=== PATIENT | female | born 2000 | race Caucasian/White ===

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

== ENCOUNTER → 2023-09-25 | Outpatient (CLI) | payer OTHER, SELFPAY ==
[2023-09-28 06:08] LABS: Chlamydia By Nucleic Acid AMP Negative (Negative); Gonococcus By Nucleic Acid AMP Negative (Negative)
[2023-10-01 16:28] LABS: HPV Reflexed? NOT INDICATED
== END | disposition home or self-care (01) ==
PROVIDERS: Referring Provider Advanced Practice Midwife; Visit Provider Advanced Practice Midwife
DX: Z34.00 Encounter for supervision of normal first pregnancy, unspecified trimester (principal)
CPT/HCPCS: 87086; 87088; 87491; 87591; 88175; G0145

== ENCOUNTER → 2023-10-28 | Outpatient (CLI) | payer OTHER, SELFPAY ==
[2023-10-28 12:31] LABS: Absolute Lymphocyte Count 2.19 X10^3/uL (0.83-4.51); Absolute Neutrophil Count 6.4 X10^3/uL (2.0-7.7); Basophil# 0.01 X10^3/uL; Basophil% 0.1 % (0-1); Eosinophil# 0.19 X10^3/uL; Hematocrit 38.2 % (37-47); Lymphocyte # 2.19 X10^3/ul (0.83-4.51); Lymphocyte % 23.1 % (19-41); Mean Corpuscular Hgb 29.7 pg (27.0-32.0); Mean Corpuscular Volume 87.2 fL (81-99); Mean Platelet Vol. 10.4 fl (6.2-12.0); Monocyte# 0.62 X10^3/uL; Monocyte% 6.5 % (0-10); NRBC Flagged by Analyzer 0 % (0-5); Neutrophil # 6.44 X10^3/uL (2.7-7.7); Platelet Count 197 K/mm3 (150-450); RBC Distribution Width CV 12.4 % (11.6-14.6); RBC Distribution Width SD 39.6 fl (35.1-43.9); Red Blood Count 4.38 M/mm3 (4.2-5.4); White Blood Count 9.5 K/mm3 (4.4-11.0)
[2023-10-28 13:40] LABS: HIV - WCH Non-Reactive (Nonreactive); Hepatitis B Surface Antigen Non-Reactive (Nonreactive); Hepatitis C Antibody Non-Reactive (Nonreactive); Rubella IgG Reactive (Nonreactive); Syphilis Antibodies Non-reactive
== END | disposition home or self-care (01) ==
PROVIDERS: Advanced Practice Midwife; Referring Provider Obstetrics & Gynecology; Visit Provider Obstetrics & Gynecology
DX: Z34.82 Encounter for supervision of other normal pregnancy, second trimester (principal)
CPT/HCPCS: 36415; 85025; 86703; 86762; 86780; 86803; 86850; 86900; 86901; 87340

== ENCOUNTER → 2024-01-24 | Outpatient (CLI) | payer OTHER, SELFPAY ==
[2024-01-24 14:32] LABS: Absolute Lymphocyte Count 2.15 X10^3/uL (0.83-4.51); Absolute Neutrophil Count 8.1 X10^3/uL (2.0-7.7); Basophil# 0.03 X10^3/uL; Basophil% 0.3 % (0-1); Eosinophils% 0.9 % (0-5); Hematocrit 32.3 % (37-47); Hemoglobin 10.7 g/dL (12.0-15.0); Lymphocyte # 2.15 X10^3/ul (0.83-4.51); Lymphocyte % 19.1 % (19-41); Mean Corp Hgb Conc 33.1 g/dL (32-36); Mean Corpuscular Hgb 29.5 pg (27.0-32.0); Mean Platelet Vol. 10.2 fl (6.2-12.0); Monocyte# 0.78 X10^3/uL; Monocyte% 6.9 % (0-10); NRBC Flagged by Analyzer 0 % (0-5); Neutrophil # 8.09 X10^3/uL (2.7-7.7); Platelet Count 245 K/mm3 (150-450); RBC Distribution Width CV 11.9 % (11.6-14.6); RBC Distribution Width SD 38.2 fl (35.1-43.9); Red Blood Count 3.63 M/mm3 (4.2-5.4); White Blood Count 11.2 K/mm3 (4.4-11.0)
[2024-01-24 14:47] LABS: Glucose Challenge Gest 1H 50g 107 mg/dL (70-140)
[2024-01-24 15:18] LABS: HIV - WCH Non-Reactive (Nonreactive); Syphilis Antibodies Non-reactive
== END | disposition home or self-care (01) ==
LOC: LAB 13:38
PROVIDERS: PCP Internal Medicine; Referring Provider Nurse Practitioner Women's Health; Visit Provider Nurse Practitioner Women's Health
DX: Z34.02 Encounter for supervision of normal first pregnancy, second trimester (principal); Z3A.00 Weeks of gestation of pregnancy not specified
CPT/HCPCS: 36415; 82950; 85025; 86703; 86780

== ENCOUNTER → 2024-02-24 | Outpatient (CLI) | payer OTHER, SELFPAY ==
[2024-02-24 16:03] LABS: Absolute Lymphocyte Count 2.49 X10^3/uL (0.83-4.51); Basophil# 0.02 X10^3/uL; Basophil% 0.1 % (0-1); Eosinophil# 0.09 X10^3/uL; Eosinophils% 0.7 % (0-5); Hematocrit 29.5 % (37-47); Hemoglobin 9.6 g/dL (12.0-15.0); Lymphocyte # 2.49 X10^3/ul (0.83-4.51); Lymphocyte % 18.5 % (19-41); Mean Corp Hgb Conc 32.5 g/dL (32-36); Mean Corpuscular Hgb 28.1 pg (27.0-32.0); Mean Corpuscular Volume 86.3 fL (81-99); Mean Platelet Vol. 10.1 fl (6.2-12.0); Monocyte# 0.75 X10^3/uL; Monocyte% 5.6 % (0-10); NRBC Flagged by Analyzer 0 % (0-5); Neutrophil % 74.3 % (47-70); Platelet Count 219 K/mm3 (150-450); RBC Distribution Width CV 12.2 % (11.6-14.6); RBC Distribution Width SD 38.2 fl (35.1-43.9); Red Blood Count 3.42 M/mm3 (4.2-5.4); White Blood Count 13.5 K/mm3 (4.4-11.0)
== END | disposition home or self-care (01) ==
LOC: LAB 15:37
PROVIDERS: PCP Internal Medicine; Referring Provider Advanced Practice Midwife; Visit Provider Advanced Practice Midwife
DX: O99.019 Anemia complicating pregnancy, unspecified trimester (principal); Z3A.00 Weeks of gestation of pregnancy not specified
CPT/HCPCS: 36415; 85025

== ENCOUNTER → 2024-03-27 | Outpatient (CLI) | payer OTHER, SELFPAY ==
[2024-03-27 17:15] LABS: Hematocrit 29.8 % (37-47); Hemoglobin 9.4 g/dL (12.0-15.0); Mean Corp Hgb Conc 31.5 g/dL (32-36); Mean Corpuscular Hgb 25.9 pg (27.0-32.0); Mean Corpuscular Volume 82.1 fL (81-99); Mean Platelet Vol. 10.8 fl (6.2-12.0); Platelet Count 224 K/mm3 (150-450); RBC Distribution Width SD 39.1 fl (35.1-43.9); Red Blood Count 3.63 M/mm3 (4.2-5.4); White Blood Count 15.9 K/mm3 (4.4-11.0)
[2024-03-27 17:28] LABS: Iron 36 ug/dL (50-170); Iron Binding Capacity,Total 553 ug/dL (250-450); PERCENT IRON SATURATION 6.5 % (15.0-55.0)
== END | disposition home or self-care (01) ==
LOC: BWCLAB 14:27
PROVIDERS: Obstetrics & Gynecology; PCP Internal Medicine; Referring Provider Registered Nurse; Visit Provider Registered Nurse
DX: O99.019 Anemia complicating pregnancy, unspecified trimester (principal); Z3A.00 Weeks of gestation of pregnancy not specified
CPT/HCPCS: 36415; 83540; 83550; 85027

== ENCOUNTER → 2024-04-06 | Outpatient (CLI) | payer SELFPAY | END | disposition home or self-care (01) | LOC: LABSPEC 15:23 | PROVIDERS: PCP Internal Medicine; Referring Provider Obstetrics & Gynecology; Visit Provider Obstetrics & Gynecology | DX: Z34.02 Encounter for supervision of normal first pregnancy, second trimester (principal); Z3A.00 Weeks of gestation of pregnancy not specified | CPT/HCPCS: 87081 ==

== ENCOUNTER 2024-04-10 08:21 | Outpatient (CLI) | payer OTHER, SELFPAY ==
[2024-04-10 08:36] VITALS: BP 111/78; PULSE 94; RESP 16; TEMP 36.4; O2SAT 98; BMI 27.4
[2024-04-10] MEDS: Iron Sucrose Complex 300 MG in 0.9% Normal Saline (250mL Bag) 250 ML 177 MG IV (08:45)
[2024-04-10] MEDS: 0.9% NaCl Peripheral Flush Adult/Peds IV (08:45)
[2024-04-10 11:05] VITALS: BP 115/73; PULSE 83; RESP 16; TEMP 36.4; O2SAT 97
== END 2024-04-10 23:59 | disposition home or self-care (01) ==
PROVIDERS: PCP Internal Medicine; Referring Provider Obstetrics & Gynecology; Visit Provider Obstetrics & Gynecology
DX: D64.9 Anemia, unspecified (principal)
CPT/HCPCS: 96365; 96366; J1756; A4216

== ENCOUNTER 2024-04-17 08:22 | Outpatient (CLI) | payer OTHER, SELFPAY ==
[2024-04-17 08:27] VITALS: BP 114/73; PULSE 89; RESP 16; TEMP 36.2; O2SAT 95
[2024-04-17] MEDS: 0.9% NaCl Peripheral Flush Adult/Peds IV (08:34)
[2024-04-17] MEDS: 0.9% Normal Saline (100mL Bag) 100 ML 15 ML IV (08:38)
[2024-04-17] MEDS: Iron Sucrose Complex 300 MG in 0.9% Normal Saline (250mL Bag) 250 ML 177 MG IV (08:50)
[2024-04-17 10:53] VITALS: BP 117/72; PULSE 86; RESP 16; TEMP 36.5; O2SAT 96
== END 2024-04-17 23:59 | disposition home or self-care (01) ==
LOC: MEDOUTP 08:22
PROVIDERS: PCP Internal Medicine; Referring Provider Obstetrics & Gynecology; Visit Provider Obstetrics & Gynecology
DX: D64.9 Anemia, unspecified (principal)
CPT/HCPCS: 96365; 96366; J1756; A4216

== ENCOUNTER 2024-04-24 08:27 | Outpatient (CLI) | payer OTHER, SELFPAY ==
[2024-04-24 08:32] VITALS: BP 121/82; PULSE 78; RESP 16; TEMP 36
[2024-04-24] MEDS: 0.9% NaCl Peripheral Flush Adult/Peds IV (08:33)
[2024-04-24] MEDS: 0.9% Normal Saline (100mL Bag) 100 ML 15 ML IV (08:33)
[2024-04-24] MEDS: Iron Sucrose Complex 300 MG in 0.9% Normal Saline (250mL Bag) 250 ML 177 MG IV (08:40)
[2024-04-24 10:32] VITALS: BP 119/81; PULSE 89; RESP 16; TEMP 36.6; O2SAT 96
== END 2024-04-24 23:59 | disposition home or self-care (01) ==
LOC: MEDOUTP 08:27
PROVIDERS: PCP Internal Medicine; Referring Provider Obstetrics & Gynecology; Visit Provider Obstetrics & Gynecology
DX: D64.9 Anemia, unspecified (principal)
CPT/HCPCS: 96365; 96366; J1756; A4216

== ENCOUNTER 2024-05-03 07:15 | Inpatient (IN) | payer OTHER, SELFPAY ==
[2024-05-03] VITALS (105 sets, daily range): BP systolic 103–141; BP diastolic 57–89; PULSE 70–219; RESP 14–18; TEMP 36.5–39.4; O2SAT 82–100; BMI 26.6
[2024-05-03] MEDS: Lactated Ringers 1,000 ML 50 ML IV (07:45)
--- NOTE | 2024-05-03 07:47 | HP.PCM.OB_ITS ---
HPI - General General Date of Admission: 05/03/24 Date of Service: 05/03/24 HPI Narrative RAMON BRAND, is a 23 F 40.5 weeks who presents for elective induction of labor Maternal Data Information RIC Calculator Estimated Delivery Date Method Current WG Current Estimate 04/28/24 LMP (Certain) 40w 5d Final RIC: 04/28/24 Final RIC Source: US >20 weeks Gestational age: 40.5 weeks PFSH PFSH Medical History Seasonal allergies Home Medications ?Medication ?Instructions ?Recorded ?Last Taken ?Type multivit-min no.71-iron fum 28 1 cap PO DAILY 09/06/23 Unknown History mg-folate no.1 1 mg-dha 300 mg capsule (PNV-[place]) Allergy/AdvReac Type Severity Reaction Status Date / Time No Known Allergies Allergy Verified 05/03/24 07:21 Social History adopted: No household members: significant other current occupational status: employed current occupation: instrument installer pets and animals: Yes (Avoid litter box) pets and animals: cat(s) history of recent travel: Yes ([place], [facility] & [place] in July) out of state: Yes sexually active: Yes Smoking Status: Never smoker alcohol intake: never substance use type: does not use well-balanced diet: about half the time caffeine: No eating out: 1-3 times/week during the past year weight has: remained stable what type of physical activity do you participate in: walking frequency: daily duration: 15-30 minutes/day román/presybeterian: None seatbelt use: always do you feel safe at home: Yes additional social history: BF Stephan History 1 Elective abortions Hx Para 0 Spontaneous abortions Hx # Term Pregnancies Ectopic pregnancies Hx # Pregnancies Multiple births # of living children Visit Details Expected Delivery Route/Plan Labor Preferences- CB/BF classes: labor support person: Stephan labor intervention preferences: [] pain management options preferred: plan epidural cut cord/dad catch: [] : [] PP control planned: [] discussed possible routes of delivery and associated risks: [] special requests: [] Plans Covid status: [] Flu vaccine: [] Tdap vaccine: done Rhogam: [] LARC form signed: done Problem list reviewed and updated with the most current plan of care details and appropriate orders placed. Relevant counseling for the gestational age provided. Continue routine care and follow up unless otherwise noted in visit notes/problem list details OB Flowsheet Initial Weight: 145 lb Date -?-?-?-?-?-?-?-?-?-?-?-?- EGA Weight BP Urine Prot -?-?-?-?-?-?-?-?-?-?-?-?- Glucose FHR FuHt Pres Dilation -?-?-?-?-?-?-?-?-?-?-?-?- Effaced St Visit Note 09/25/23 -?-?-?-?-?-?-?-?-?-?-?-?- 9w 1d 145 lb (+0 oz) 106/67 -?-?-?--?-?-?-?-?-?-?-?-?- 175 -?-?-?-?-?-?-?-?-?-?-?-?- KW- CRL cons wit h dates 24mm. declines NIPT at this time. 10/28/23 -?-?-?-?-?-?-?-?-?-?-?-?- 13w 6d 139 lb 6 oz (-5 lb 10 oz) 121/81 Negative -?-?-?-?-?-?-?-?-?-?-?-?- Negative 155 -?-?-?-?-?-?-?-?-?-?-?-?- JV- growth is pr ogressing well. no complaints today. wants NIPT. Anatomy scan with mfm ordered. 11/27/23 -?-?-?-?-?-?-?-?-?-?-?-?- 18w 1d 143 lb (-2 lb) 115/81 Negative -?-?-?-?-?-?-?-?-?-?-?-?- Negative 150 -?-?-?-?-?-?-?-?-?-?-?-?- SM- no vb lof an atomy US 12/25/23 -?-?-?-?-?-?-?-?-?-?-?-?- 22w 1d 146 lb 6 oz (+1 lb 6 oz) 112/70 Negative -?-?-?-?-?-?-?-?-?-?-?-?- Negative 141 -?-?-?-?-?-?-?-?-?-?-?-?- MH-No VB, LOF. Good FM. Declines concerns 01/24/24 -?-?-?-?-?-?-?-?-?-?-?-?- 26w 3d 145 lb 8 oz (+8 oz) 106/71 Negative -?-?-?-?-?-?-?-?-?-?--?-?- Negative 146 27 -?-?-?-?-?-?-?-?-?-?-?-?- LC- no vb/ctx/lo f. good fm. 28 week labs today. LC- no vb/ctx/lof. good fm. 28 week labs today. considering tdap 02/10/24 -?-?-?-?-?-?-?-?-?-?-?-?- 28w 6d 150 lb (+5 lb) 107/75 Negative -?-?-?-?-?-?-?-?-?-?-?-?- Negative 140 29 -?-?-?-?-?-?-?-?-?-?-?-?- KW- no vb/lof/ct x. good fm. Tdap today. LARC done 02/24/24 -?-?-?-?-?-?-?-?-?-?-?-?- 30w 6d 154 lb (+9 lb) 111/71 Negative -?-?-?-?-?-?-?-?-?-?-?-?- Negative 135 31 -?-?-?-?-?-?-?-?-?-?-?-?- KW- no vb/lof/ct x. good fm. no concerns today 03/09/24 -?-?-?-?-?-?-?-?-?-?-?-?- 32w 6d 154 lb 2 oz (+9 lb 2 oz) 121/75 Negative -?-?-?-?-?-?-?-?-?-?-?-?- Negative 140 33 -?-?-?-?-?-?-?-?-?-?-?-?- JV- no lof, vagi nal bleeding, or dec fm. iron studies and rpt cbc for next visit. (started iron 2 weeks ago) 03/27/24 -?-?-?-?-?-?-?-?-?-?-?-?- 35w 3d 156 lb 4 oz (+11 lb 4 oz) 113/79 Negative -?-?-?-?-?-?-?-?-?-?-?-?- Negative 140 35 -?-?-?-?-?-?-?-?-?-?-?-?- LC- no vb/ctx/lo f. good fm. no concerns. LC- no vb/ctx/lof. good fm. no concerns. repeat cbc/iron studies today 04/06/24 -?-?-?-?-?-?-?-?-?-?-?-?- 36w 6d 162 lb 2 oz (+17 lb 2 oz) 126/85 Negative -?-?-?-?-?-?-?-?-?-?-?-?- Negative 140 35 -?-?-?-?-?-?-?-?-?-?-?-?- SM- no vb lof go od fm n oreuglar ctx discussed IV iron infusions need schedule EMILY 04/14/24 -?-?-?-?-?-?-?-?-?-?-?-?- 38w 0d 161 lb 4 oz (+16 lb 4 oz) 118/85 Trace -?-?-?--?-?-?-?-?-?-?-?-?- Negative 165 37 Cephalic 0 .5 -?-?-?-?-?-?-?-?-?-?-?-?- -2 JV- cerv ix very posterior and difficult to reach. station is -2 however. 04/20/24 -?-?-?-?-?-?-?-?-?-?-?-?- 38w 6d 159 lb (+14 lb) 117/81 Trace -?-?-?-?-?-?-?-?-?-?-?-?- Negative 130 38 -?-?-?-?-?--?-?-?-?-?-?-?- KW- no vb/lof/ct x. good fm. 04/27/24 -?-?-?-?-?-?-?-?-?-?-?-?- 39w 6d 160 lb 8 oz (+15 lb 8 oz) 114/83 Negative -?-?-?-?-?-?-?-?-?-?-?-?- Negative 135 39 Cephalic 1 -?-?-?-?-?-?-?-?-?-?-?-?- 70 -1 KW- no vb/ lof/ctx. good fm. IOL set up NST FHR Rate Baby A Baseline: 130 Variability:: Moderate Accelerations:: 15 x 15 Decelerations:: None NST Reactive:: Yes FHR Category:: Category I Uterine Activity:: 3-4 minutes ROS Constitutional Constitutional: Denies change in weight, fatigue, fever(s), headache(s), poor appetite or weakness Eyes Eyes: Denies blurry vision, change in vision, floaters, seeing flashes or spots in vision ENT HEENT: Denies dizziness, headache(s), loss taste/smell or sore throat Cardiovascular Cardiovascular: Denies chest pain, dizziness, dyspnea, irregular heart rhythm, lightheadedness, palpitations or rapid heart rate Respiratory/Chest Respiratory/Chest: Denies change in mental status, chest tightness, cough, dyspnea or breast pain Gastrointestinal Gastrointestinal: Denies anorexia, chewing difficulty, constipation, diarrhea or weight changes Genitourinary Genitourinary: Denies difficulty urinating, dysuria, flank pain, genital pain, urinary frequency or urinary urgency Musculoskeletal Musculoskeletal: Denies back pain, difficulty walking, extremity pain, joint pain, muscle cramps or muscle weakness Integumentary Integumentary: Denies lesions or unusual bruising Neurologic Neurologic: Denies abnormal movements, abnormal speech, dizziness, numbness, seizure-like activity, syncope or weakness Psychiatric Psychiatric: Denies behavioral changes, change in appetite, confusion, depression, homicidal ideation, suicidal ideation or suicidal thoughts Endocrine Endocrinology: Denies excessive sweating, polydipsia or polyuria Hematologic/Lymphatic Hematologic/Lymphatic: Denies anemia Allergic/Immunologic Allergic/Immunologic: Denies itchy eyes, lip swelling, throat swelling, tongue swelling or wheezing Vital Signs Vital Signs Vital Signs: Weight Weight: 160 lb 8 oz Body Mass Index (BMI) 26.6 Physical Exam Const alert, oriented x3 and no apparent distress General Appearance: cooperative Orientation / Consciousness: awake HEENT normocephalic Neck full ROM Lymph Lymphatic: no lymphadenopathy noted Chest inspection of chest normal Resp normal respiratory effort and normal air movement Effort and Inspection: able to speak in complete sentences and symmetric chest movement GI soft to palpation and non-tender Inspection: gravid Palpation: soft; Negative for tender external exam normal Back/Spine normal to inspection Extremity normal to inspection and full ROM Skin no rashes or lesions noted Psych mental status grossly normal Appearance: grossly normal Speech: normal speech Labs Labs Labs: Blood Type A POSITIVE Antibody Screen NEGATIVE Hct 29.8 % (37-47) L Hgb 9.4 g/dL (12.0-15.0) L Syphilis Total Ab Non-reactive Rubella IgG Antibody Reactive (Nonreactive) Hep Bs Antigen Non-Reactive (Nonreactive) Hepatitis C Antibody Non-Reactive (Nonreactive) Chlamydia DNA ([place]) Negative (Negative) N.gonorrhoeae DNA ([facility]) Negative (Negative) HIV 1&2 Antibody Non-Reactive (Nonreactive) Glucose 1 Hr 50 gm 107 mg/dL (70-140) Assessment & Plan (1) Encounter for induction of labor: PLAN: Patient presents IOL, plan management for with pitocin/AROM. Pain management: plans epidural. GBS negative. Management of any complications: none I have reviewed the [facility] and made any clinically relevant updates. Dr Adams aware of induction and assessment. agrees with plan (2) Anemia affecting : COMMENT: iron supplement and schedule IV iron infusions (3) Supervision of normal first : QUALIFIERS: Trimester: second trimester Qualified Code(s): Z34.02 - Encounter for supervision of normal first , second trimester COMMENT: PRR, , RIC 04/28/24, shanna Rothman (4) : QUALIFIERS: Weeks of gestation: 39 weeks Qualified Code(s): Z3A.39 - 39 weeks gestation of COMMENT: nl anatomy, NIPT low risk Charges/Coding Multi Select Codes Urinary/Genital Urinary/Genital CPT Codes: No Charge
[2024-05-03 08:02] LABS: Absolute Lymphocyte Count 2.59 X10^3/uL (0.83-4.51); Absolute Neutrophil Count 7.5 X10^3/uL (2.0-7.7); Basophil# 0.03 X10^3/uL; Basophil% 0.3 % (0-1); Eosinophil# 0.09 X10^3/uL; Eosinophils% 0.8 % (0-5); Hematocrit 35.4 % (37-47); Hemoglobin 11.5 g/dL (12.0-15.0); Lymphocyte # 2.59 X10^3/ul (0.83-4.51); Lymphocyte % 23.5 % (19-41); Mean Corp Hgb Conc 32.5 g/dL (32-36); Mean Corpuscular Hgb 26.7 pg (27.0-32.0); Mean Corpuscular Volume 82.3 fL (81-99); Mean Platelet Vol. 11.2 fl (6.2-12.0); Monocyte# 0.71 X10^3/uL; Monocyte% 6.4 % (0-10); NRBC Flagged by Analyzer 0 % (0-5); Neutrophil # 7.52 X10^3/uL (2.7-7.7); Neutrophil % 68.3 % (47-70); POSITIVE MORPHOLOGY YES; Platelet Count 203 K/mm3 (150-450); RBC Distribution Width CV 21.2 % (11.6-14.6); RBC Distribution Width SD 60.6 fl (35.1-43.9)
[2024-05-03 08:05] LABS: Differential Indicated SCAN CRITERIA MET
[2024-05-03] MEDS: Oxytocin 15 Units/NS 250ml 15 UNITS/250 ML IV.SOLN 2 UNITS IV (08:25)
[2024-05-03 09:11] LABS: Syphilis Antibodies Non-reactive
[2024-05-03 09:28] LABS: Anisocytosis 1+; Platelet Estimate A (ADEQ)
[2024-05-03] MEDS: fentaNYL 100 MCG/2 ML Ampul IV (12:07)
[2024-05-03] MEDS: 0.9% Normal Saline Single 100 ML IV.SOLN. INTRA-UTER (12:07)
[2024-05-03] MEDS: LACTATED RINGERS 500 ML 999 ML IV (12:31)
[2024-05-03] MEDS: fentaNYL-bupivacaine (epidural) 100 ML BAG EPIDURAL ×2 (13:22→17:15)
[2024-05-03] MEDS: Ondansetron 4 MG/2 ML Vial IV (14:28)
--- NOTE | 2024-05-03 14:56 | PCM.PN.BLA ---
Progress Note comfortable with epidural current tracing: FHT: 120 Moderate variability reactive no decelerations category I tracing [place]: 1.5-2.5 Contractions Membranes:Ruptured for clear [id number] SVE:3/-1 A/P: Continue with position changes Titrate pitocin per protocol Epidural per anesthesia GBS neg Anticipate Dr Adams aware of above assessment and agrees with plan of care Assessment & Plan Assessment/Plan (1) Encounter for induction of labor: (2) Anemia affecting : (3) Supervision of normal first : QUALIFIERS: Trimester: second trimester Qualified Code(s): Z34.02 - Encounter for supervision of normal first , second trimester (4) : QUALIFIERS: Weeks of gestation: 39 weeks Qualified Code(s): Z3A.39 - 39 weeks gestation of Multi Select Codes Urinary/Genital Urinary/Genital CPT Codes: No Charge
[2024-05-03] MEDS: Lactated Ringers 1,000 ML 200 ML IV ×2 (15:44→18:31)
--- NOTE | 2024-05-03 16:44 | PN_ITS ---
Progress Note replaced epidural and now getting comfortable with second epidural current tracing: FHT: 125 Moderate variability reactive some early decelerations category I tracing [place]: 2-3 Contractions Membranes:ruptured remains clear SVE:3.5/90/-1 A/P: Continue with position changes Titrate pitocin per protocol Epidural per anesthesia GBS neg Anticipate Dr Adams aware of above assessment and agrees with plan of care Assessment & Plan Assessment/Plan (1) Encounter for induction of labor: (2) Anemia affecting : (3) Supervision of normal first : QUALIFIERS: Trimester: second trimester Qualified Code(s): Z34.02 - Encounter for supervision of normal first , second trimester (4) : QUALIFIERS: Weeks of gestation: 39 weeks Qualified Code(s): Z3A.39 - 39 weeks gestation of Multi Select Codes Urinary/Genital Urinary/Genital CPT Codes: No Charge
--- NOTE | 2024-05-03 19:52 | PLAC_PTH ---
PATIENT: RAMON BRAND LOC: WP U#:[id number] AGE/SX: 23/F ROOM: WP021 RE05/03/[address]: Vira Rader CNM : 2000 BED: 1 DIS: 05/05/2024 SPEC #: [id number] RECD: 05/03/24 22:05 STATUS: LUIGI REIsidoro #: [id number] TEE: 05/03/24 19:[address]: Vira Rader DEPT: SURGICAL PATHOLOGY RECD BY: Madeline Leo ENTERED: 05/04/24 08:08 SP TYPE: PLACENTA OTHR DR: Dr. Lauren Lopez MD Tissues: Placenta, NOS Procedures: Surgery Specimen Level V HEADER OPERATION: Vaginal delivery PRE-OP DIAGNOSIS: Delivery TISSUE SUBMITTED: Placenta MICROSCOPIC DIAGNOSIS Placenta: Placental disc - third trimester placenta (626 gm). - Focal area of infarction (2cm in greatest dimension). - Focal areas of intraparenchymal hemorrhage (largest measuring 1.5cm in greatest dimension). - Multifocal areas of increased syncytial knots, calcification and hyalinization of villi and intravillous fibrin deposition (pale areas). - Focal increased intrervillous and perivillous fibrin deposition. Membranes - no pathologic diagnosis. Umbilical cord - three blood vessels and no pathologic diagnosis. SJ: 05/06/2024 COMMENT Case has been reviewed in consultation with Dr. Gary who concurs with the above diagnosis. IDC:MYRA MICROSCOPIC DESCRIPTION Slides are reviewed. GROSS DESCRIPTION SPECIMEN: PLACENTA / CLINICAL INFORMATION: A. Weight: 4.035 kg B. Gestational Age: 40 weeks and 5 days C. Sex: Male PLACENTAL WEIGHT (POST FIXATION): 626 gm PLACENTAL DIMENSIONS: 22 x 22 x 3 cm PLACENTAL SHAPE: Usual ovoid PLACENTAL WEIGHT FOR GESTATIONAL AGE: Over 99th percentile MEMBRANES - Present A. Insertion: Marginal B. Site of rupture from edge: 8 cm from edge of placental disc C. Color of membrane: Beavers-reilly D. Abnormalities: None UMBILICAL CORD - Present A. Color: Beavers-reilly B. Insertion: Central C. Length: 47 cm D. Diameter: 1.4 cm E. Number of vessels: Three F. Abnormalities: None PLACENTAL DISC - Present A. Color of surface: Beavers-reilly B. surface abnormalities: None C. Maternal cotyledons: Intact with minimal tears D. Attached retro placental clot: No clot E. Cut surface: Dark red and spongy F. Lesions: Sections reveal two beavers indurated areas measuring 1.5 to 2cm in greatest dimension. Multiple pale areas are also noted with largest measuring 1.5cm in greatest dimension. G. Separate clot: Absent SECTIONS SUBMITTED: (10 cassettes) 1. Membrane roll 2. Cord, maternal end, beavers-white indurated area 3. Cord, end, beavers-white indurated area 4. Pale area in body of placenta including maternal and surfaces 5. Pale area in body of placenta including maternal and surfaces 6. Pale area in body of placenta including maternal and surfaces 7. Pale area in body of placenta including maternal and surfaces 8. Pale area in body of placenta including maternal and surfaces 9. Placental disc and maternal and surfaces with uninvolved area 10. Placental disc and maternal and surfaces with uninvolved area SJ.mr 05/05/2024 TC:5 CPT: 81811
[2024-05-03] MEDS: Methylergonovine 0.2 MG/ML Ampul IM (20:01)
[2024-05-03] MEDS: Acetaminophen 500 MG Tablet PO (20:05)
--- NOTE | 2024-05-03 20:19 | OB.VAGDELI_ITS ---
Assessment & Plan (1) Vaginal delivery: COMMENT: OLGA otero TEVIN Hill (2) Encounter for induction of labor: (3) Anemia affecting : COMMENT: iron supplement and schedule IV iron infusions (4) Supervision of normal first : QUALIFIERS: Trimester: second trimester Qualified Code(s): Z34.02 - Encounter for supervision of normal first , second trimester COMMENT: PRR, , RIC 04/28/24, shanna hill? JENNI Rothman (5) : QUALIFIERS: Weeks of gestation: 39 weeks Qualified Code(s): Z3A.39 - 39 weeks gestation of COMMENT: nl anatomy, NIPT low risk (6) Elevated temperature: COMMENT: suspected triple I. atb x 24 hours Maternal Data Information RIC Calculator Estimated Delivery Date Method Current WG Current Estimate 04/28/24 LMP (Certain) 40w 5d Final RIC: 04/28/24 Final RIC Source: US >20 weeks Gestational age: 40.5 Vaginal Delivery Maternal Presentation Maternal Presentation: Elective Induction Maternal Presentation: Presented to unit for elective induction of labor at 40.5 weeks Type of Induction: Pitocin and Amniotomy Vaginal Delivery Information Procedure Performed: Spontaneous Vaginal Delivery Surgeon/Practitioner: Vira Rader Date of Procedure: 05/03/24 Pre-Procedure Diagnosis: see problem list Post-Procedure Diagnosis: same Type of anesthesia: Epidural Estimated Blood Loss: 350 Time of Delivery: 19:52 Findings Description of procedure: Progressed well to 10cm dilated and made steady progress with effective maternal pushing. Maternal temp started elevating with pushing. 101 prior to delivery x1. Delivered the head in HÉCTOR presentation. The head was delivered atraumatically and no nuchal cord was identified. The anterior and posterior shoulders delivered without complication followed by the rest of the and the was placed on the maternal abdomen. Delayed cord clamping was employed for approximately 3 minutes. Cord was clamped and cut and gentle traction was applied to the cord and the placenta delivered spontaneously. Immediately following, it was noted to be intact with a 3 vessel cord. Uterine bleeding stable. The perineum and vagina were inspected and noted to have a first degree laceration which was repaired with 3-0 Vicryl in the usual fashion. EBL was 350cc. Patient and tolerated delivery well. Apgars 8/9. After delivery, temp was over 102. decision made for ampicillin and gent x [address] Adams notified of vaginal delivery and orders reviewed. Physician agrees with current plan of care. Presentation: Vertex Amniotic Membrane Rupture Type: Spontaneous Amniotic Fluid Description: Clear Placenta Disposition: [facility] Specimen collected: No Cord Vessel Description: 3 Vessels Cord Entanglement: None Infant A Gender: Male (1 minute): 8 (5 minute): 9 Delayed Cord Clamping: Yes Asphalt Layer plywood layup line core feeder: No Post Vaginal Deli Medications given after delivery: IV Pitocin and IM Methergin Episiotomy Description: None Laceration: 1st degree Complication Complications: No Multi Select Codes Urinary/Genital Urinary/Genital CPT Codes: 20758 Vaginal Delivery [facility]
--- NOTE | 2024-05-03 20:28 | DCINST_ITS ---
Discharge Instructions Diet Discharge Diet: No restrictions DC O2, CPAP, BIPAP needs Home O2 Discharge instructions: No Dressing / Incision Discharge Activity: Return to Normal Activity May resume sexual activity in: 6-8 weeks Dressing / Incision Call your doctor if you observe: Fever of 101 or Higher, Coldness, Increased Pain, Numbness or Tingling, Change in Color, Inability to urinate, Inability to have a bowel movement, Using more than 1 pad per hour, Shortness of breath, Dizziness, Fainting spells, Swelling in the ankles, Chest pain, Increased p alpitations (irregular heartbeat), Calf discomfort and Uncontrolled pain Follow Up Care Please Follow Up With: Vira Rader CNM When: Please call the office to schedule your follow up appointment in 6 weeks. If you had high blood pressure please call to schedule an appointment in 2 weeks. Test Results: Test results from this visit will be discussed in further detail at your follow- up appointment, if applicable. Discharge Plan Admission Admit Date/Time: 05/03/24 07:15 Attending Provider: Vira Rader Primary Care Provider: Lauren Lopez Discharge Orders/Prescriptions Prescriptions: No Action PNV-[place] 28-1-300 mg capsule 1 cap PO DAILY Referrals / Follow Up: Lauren Lopez MD [Primary Care Provider] -
[2024-05-03] MEDS: Oxytocin 15 Units/NS 250ml 15 UNITS/250 ML IV.SOLN 83 UNITS IV (20:33)
[2024-05-03] MEDS: Ampicillin 2 GM in 0.9% Normal Saline (100mL MB+) 100 ML IV (21:04)
[2024-05-03] MEDS: Gentamicin IV 300 MG in Dextrose 5%-Water (50mL Bag) 50 ML 115 MG IVPB (21:44)
[2024-05-04] VITALS (11 sets, daily range): BP systolic 91–125; BP diastolic 54–85; PULSE 85–111; RESP 16–17; TEMP 36.1–36.6; O2SAT 96–98
[2024-05-04] MEDS: Ampicillin 2 GM in 0.9% Normal Saline (100mL MB+) 100 ML IV ×3 (04:19→16:00)
--- NOTE | 2024-05-04 05:38 | PCM.RX.CS ---
Consult Antibiotic Management Pharmacy has been consulted to manage selected antibiotic: Gentamicin Type of Intervention Type of Consult: New start Dosing Weight Weight used for dosin.2 kg Pharmacy Plan for Drug Dosing Pharmacy Plan for Drug Dosing: Pharmacy Service will continue to monitor and adjust dosing as required. 1ST DOSE OF 300MG GIVEN 05/03 @ 2144 ORDERED EXTENDED DOSING, 300MG Q24H. DRAW RANDOM LEVEL IN 10 HOURS AFTER 1ST DOSE Follow-Up Labs Follow-Up Labs: Trough: Gentamicin Date/Time Labs Ordered Labs to be done on [date and time ordered]: 05/04 @ 0800
[2024-05-04] MEDS: Senna/Docusate Sodium 1 Tablet PO (08:31)
[2024-05-04] MEDS: 0.9% Saline Lock 10 ML Syringe IV ×2 (09:51→16:01)
--- NOTE | 2024-05-04 12:14 | PN.OBGYN_ITS ---
Subjective Subjective Patient doing well without complaints. Tolerating PO. Ambulating and voiding without difficulty. Feeding well. Denies chest pain, shortness of breath, calf pain/swelling, fevers, chills, lightheadedness. Objective Data Objective Data Vital Signs: Vital Signs Temp Pulse Resp BP Pulse Ox O2 Del Method 97.8 F 100 16 116/70 96 Room Air 05/04/24 08:15 05/04/24 08:16 05/04/24 08:15 05/04/24 08:16 05/04/24 04:00 05/04/24 04:00 Oxygen Delivery Method Room Air Weight: 160 lb 8 oz Body Mass Index (BMI) 26.6 Intake & Output: Intake and Output for Last 24 Hours 05/02/24 05/03/24 05/04/24 23:59 23:59 23:59 Intake Total 4268.65 / 4268.65 200 / 200 Output Total 1150 / 1150 1350 / 1350 Balance 3118.65 / 3118.65 -1150 / -1150 Lab / Micro Data 05/03/24 07:30 ROS Constitutional Constitutional: Reports systems reviewed and no addt'l complaints, except as documented; Denies anorexia or headache(s) Cardiovascular Cardiovascular: Reports systems reviewed and no addt'l complaints, except as documented; Denies dizziness, dyspnea, nausea or tachypnea Respiratory/Chest Respiratory/Chest: Reports systems reviewed and no addt'l complaints, except as documented; Denies cough, dyspnea, shortness of breath at rest or tachypnea Gastrointestinal Gastrointestinal: Reports systems reviewed and no addt'l complaints, except as documented; Denies abdominal pain, constipation or nausea Genitourinary Genitourinary: Reports systems reviewed and no addt'l complaints, except as documented; Denies burning urination, difficulty urinating, dysuria, urinary frequency or urinary incontinence Musculoskeletal Musculoskeletal: Reports systems reviewed and no addt'l complaints, except as documented Integumentary Integumentary: Reports systems reviewed and no addt'l complaints, except as documented Neurologic Neurologic: Reports systems reviewed and no addt'l complaints, except as documented; Denies abnormal speech, dizziness or headache(s) Psychiatric Psychiatric: Reports systems reviewed and no addt'l complaints, except as documented Endocrine Endocrinology: Reports systems reviewed and no addt'l complaints, except as documented Hematologic/Lymphatic Hematologic/Lymphatic: Reports systems reviewed and no addt'l complaints, except as documented Physical Exam Const alert, oriented x3 and no apparent distress Neck full ROM Resp normal respiratory effort, normal air movement and no retractions Effort and Inspection: able to speak in complete sentences and symmetric chest movement GI soft to palpation Bladder / Kidney Exam: bladder normal to palpation Uterus Palpation: uterus fundus firm Extremity normal to inspection and full ROM Psych mental status grossly normal, thought process normal and cooperative Assessment & Plan (1) Elevated temperature: COMMENT: suspected triple I. atb x 24 hours (2) Vaginal delivery: COMMENT: KW shanna Hill PLAN: s/p PPD # 1 1. routine post delivery care 2. breast feeding- support given 3. rh positive 4. rubella immune (3) Encounter for induction of labor: (4) Anemia affecting : COMMENT: iron supplement and schedule IV iron infusions (5) Supervision of normal first : QUALIFIERS: Trimester: second trimester Qualified Code(s): Z34.02 - Encounter for supervision of normal first , second trimester COMMENT: PRR, , RIC 04/28/24, shanna hill? JENNI Rothman (6) : QUALIFIERS: Weeks of gestation: 39 weeks Qualified Code(s): Z 3A.39 - 39 weeks gestation of COMMENT: nl anatomy, NIPT low risk Charges/Coding Multi Select Codes Urinary/Genital Urinary/Genital CPT Codes: No Charge
[2024-05-04] MEDS: Ibuprofen 600 MG Tablet PO ×2 (12:28→20:24)
[2024-05-05 01:39] VITALS: BP 105/69; PULSE 81; PULSE 82; RESP 14; TEMP 36.7; O2SAT 98
[2024-05-05 08:30] VITALS: BP 110/74; PULSE 79; RESP 16; TEMP 36.4
[2024-05-05 08:34] VITALS: BP 110/74; PULSE 79
--- NOTE | 2024-05-05 08:55 | PCM.PN.OB ---
Subjective Subjective Patient doing well without complaints. Tolerating PO. Ambulating and voiding without difficulty. feeding well. Denies chest pain, shortness of breath, calf pain/swelling, fevers, chills, lightheadedness. Objective Data Objective Data Vital Signs: Vital Signs Temp Pulse Resp BP Pulse Ox O2 Del Method 98.1 F 79 14 110/74 98 Room Air 05/05/24 01:39 05/05/24 08:34 05/05/24 01:39 05/05/24 08:34 05/05/24 01:39 05/05/24 01:39 Oxygen Delivery Method Room Air Weight: 160 lb 8 oz Body Mass Index (BMI) 26.6 Intake & Output: Intake and Output for Last 24 Hours 05/03/24 05/04/24 05/05/24 23:59 23:59 23:59 Intake Total 4268.65 / 4268.65 300 / 300 Output Total 1150 / 1150 1350 / 1350 Balance 3118.65 / 3118.65 -1050 / -1050 Lab / Micro Data 05/03/24 07:30 ROS Constitutional Constitutional: Reports systems reviewed and no addt'l complaints, except as documented Cardiovascular Cardiovascular: Reports systems reviewed and no addt'l complaints, except as documented Respiratory/Chest Respiratory/Chest: Reports systems reviewed and no addt'l complaints, except as documented Gastrointestinal Gastrointestinal: Reports systems reviewed and no addt'l complaints, except as documented Physical Exam Const alert, oriented x3 and no apparent distress HEENT Head and Scalp: atraumatic Resp normal respiratory effort GI soft to palpation and non-tender Bimanual Exam - Vag & Uterus: uterus non-tender Uterus Palpation: uterus fundus firm (below Umbilicus) Assessment & Plan (1) Elevated temperature: COMMENT: suspected triple I. atb x 24 hours (2) Vaginal delivery: COMMENT: KW boy IOL Patel PLAN: Plan s/p PPD # 2 1. routine post delivery care 2. breast feeding- support given 3. rh positive 4. rubella immune
== END 2024-05-05 12:05 | disposition home or self-care (01) | DRG 806 ==
PROVIDERS: Admitting Provider Advanced Practice Midwife; PCP Internal Medicine; Visit Provider Advanced Practice Midwife
DX: O99.02 Anemia complicating childbirth (principal); Z37.0 Single live birth; O75.2 Pyrexia during labor, not elsewhere classified; O76 Abnormality in fetal heart rate and rhythm complicating labor and delivery; Z3A.40 40 weeks gestation of pregnancy; O70.0 First degree perineal laceration during delivery
CPT/HCPCS: 59025; 59050; 85025; 86780; 86850; 86900; 86901; 88307; A4216; J2405